=== PATIENT | female | born 1965 | race Caucasian/White ===

== ENCOUNTER → 2016-10-29 | Outpatient (CLI) | payer BC ==
--- NOTE | 2016-10-29 09:27 | DIAGNOSTIC IMAGING REPORT ---
LEFT HAND MIN 3 VIEWS ROUTINE CLINICAL HISTORY: Bilateral hand pain. COMPARISON: None FINDINGS: Alignment of left hand is anatomic. No fracture or suspicious lesion is identified. There is moderate joint space narrowing with mild osteophytosis within multiple interphalangeal joints of the left hand. No erosions are identified. IMPRESSION: Moderate joint space narrowing with mild osteophytosis within multiple interphalangeal joints of the left hand. Osteoarthritis is favored. Rheumatoid arthritis could appear similar although is considered less likely. Electronically signed by: Piter Duenas M.D. 10/29/2016 9:25 AM
--- NOTE | 2016-10-29 09:29 | DIAGNOSTIC IMAGING REPORT ---
RIGHT HAND MIN 3 VIEWS ROUTINE CLINICAL HISTORY: Bilateral hand pain. COMPARISON: None FINDINGS: Alignment of the right hand is anatomic. No fracture or suspicious lesion is identified. No erosions are identified. There is moderate joint space narrowing with osteophytosis within multiple interphalangeal joints of the right hand. IMPRESSION: Moderate joint space narrowing with osteophytosis of multiple interphalangeal joints of the right hand. Osteoarthritis is favored. An inflammatory arthritis such as rheumatoid arthritis is considered less likely. Electronically signed by: Piter Duenas M.D. 10/29/2016 9:27 AM
== END | disposition home or self-care (01) ==
LOC: C.RAD1850 09:04
PROVIDERS: ATTEND Family Medicine
DX: M25.549 Pain in joints of unspecified hand (principal)

== ENCOUNTER → 2018-02-26 | Outpatient (CLI) | payer OTHER ==
--- NOTE | 2018-03-01 14:33 | MAMMOGRAPHY REPORT ---
BILATERAL DIGITAL SCREENING MAMMOGRAM TOMOSYNTHESIS WITH CAD: 02/26/2018 CLINICAL HISTORY: Routine screening. Patient has no complaints. TECHNIQUE: Breast tomosynthesis in addition to standard 2D mammography was performed. Current study was also evaluated with a Computer Aided Detection (CAD) system. COMPARISON: Comparison is made to exams dated: 01/19/2015 mammogram - [facility], 1 11/29/2011 mammogram, 08/21/2011 mammogram, 08/16/2010 mammogram, 07/26/2009 mammogram, and 07/05/2008 ma mmogram. BREAST COMPOSITION: The tissue of both breasts is heterogeneously dense, which may obscure small mas ses. FINDINGS: There are grouped calcifications within the right upper outer quadrant, for which spot magn ification views are recommended for further evaluation. The remainder of both breasts are stable compared to prior exams, without suspicious masses, calcific ations, or areas of architectural distortion noted. Other scattered bilateral benign-appearing calci fications are not significantly changed. IMPRESSION: ACR BI-RADS CATEGORY 0: INCOMPLETE EVALUATION: NEED ADDITIONAL IMAGING EVALUATION Right upper outer quadrant calcifications, for which additional imaging evaluation is recommended. T he patient will be called to schedule an appointment. Approximately 10% of breast cancers are not detected with mammography. A negative mammographic report should not delay biopsy if a clinically suggestive mass is present. Yoli García M.D. ah/:02/26/2018 16:11:05 Flat Grinder Operator: Judy CARRASCO(Chantell)(Ming)(BD), [facility] letter sent: Addl Imaging 0 BI-RADS Code: ACR BI-RADS Category 0: Incomplete Evaluation: Need Additional Imaging Evaluation
== END | disposition home or self-care (01) ==
LOC: C.MAMM 13:59
PROVIDERS: ATTEND Family Medicine
DX: Z12.31 Encounter for screening mammogram for malignant neoplasm of breast (principal); R92.0 Mammographic microcalcification found on diagnostic imaging of breast

== ENCOUNTER → 2018-03-16 | Outpatient (CLI) | payer OTHER ==
--- NOTE | 2018-03-16 13:17 | MAMMOGRAPHY REPORT ---
UNILATERAL RIGHT DIGITAL DIAGNOSTIC MAMMOGRAM: 03/16/2018 CLINICAL HISTORY: 52-year-old woman called back from screening mammography for right upper outer quad rant calcifications. TECHNIQUE: Spot magnification right CC and ML views were obtained. COMPARISON: Comparison is made to exams dated: 02/26/2018 mammogram, 01/19/2015 mammogram - [facility], 09/28/2012 mammogram, 08/21/2011 mammogram, 08/16/2010 mammogram, and 07/26/2009 evy mogram. BREAST COMPOSITION: The tissue of the right breast is heterogeneously dense, which may obscure small masses. FINDINGS: The spot magnification views of the right breast demonstrate a 4 mm cluster of amorphous mi crocalcifications in the upper outer anterior breast. No associated architectural distortion or obvi ous mass. A second smaller grouping of punctate and amorphous calcifications is seen slightly superi or and posterior the first on the spot magnification ML view measuring 1.6 mm. Although these calcif ications could represent benign fibrocystic change, definitive characterization with stereotactic karen ded biopsy of the dominant 4 mm cluster is recommended. Pending benign pathology results could follo w the second smaller cluster in 6 months to ensure stability. IMPRESSION: ACR BI-RADS CATEGORY 4: SUSPICIOUS 1. Right breast stereotactic guided biopsy is recommended for a 4 mm cluster of amorphous microcalci fications in the upper outer anterior right breast. 2. Pending benign pathology results, a short interval follow-up right diagnostic mammogram including spot magnification views is recommended to ensure stability of a smaller incidentally identified clu ster slightly superior and posterior to the first on the spot magnification ML view. These results and recommendations were discussed with the patient at the time of the exam. She tenta tively scheduled the right breast biopsy prior to leaving our department. Approximately 10% of breast cancers are not detected with mammography. A negative mammographic report should not delay biopsy if a clinically suggestive mass is present. Gifty Currie M.D. ay/:03/16/2018 12:27:48 Ruffler: Camille BERMUDEZ)(Ming), [facility] letter sent: Abnormal 4/5 BI-RADS Code: ACR BI-RADS Category 4: Suspicious
== END | disposition home or self-care (01) ==
LOC: C.MAMM 08:53
PROVIDERS: ATTEND Family Medicine
DX: R92.0 Mammographic microcalcification found on diagnostic imaging of breast (principal)